=== PATIENT | female | born 1990 | race African-American/Black ===

== ENCOUNTER 2019-02-19 04:36 | Emergency (ER) | payer MEDICAID ==
[~2019-02-19] VITALS: Ht 170.2 cm; Wt 69.4 kg
[2019-02-19 04:46] VITALS: BP 127/64
== END 2019-02-19 08:27 | disposition left against medical advice (07) ==
LOC: ER 06:03
DX: Z53.21 Procedure and treatment not carried out due to patient leaving prior to being seen by health care provider (principal)